=== PATIENT | male | born 1985 | race Caucasian/White ===

== ENCOUNTER 2022-08-02 08:05 | Emergency (ER) | payer MEDICARE, MEDICAID ==
[~2022-08-02] VITALS: Ht 190.5 cm; Wt 145.4 kg
[2022-08-02 08:45] LABS: BASOPHILS % (AUTO) 0.2 % (0-1); EOSINOPHILS # (AUTO) 0.1 X10'3 (0-0.9); EOSINOPHILS % (AUTO) 1.1 % (0-6); HEMATOCRIT 39.6 % (42.0-52.0); HEMOGLOBIN 12.8 g/dl (14.0-17.9); LYMPHOCYTES # (AUTO) 1.7 X10'3 (1.1-4.8); LYMPHOCYTES % (AUTO) 17.6 % (21-51); MEAN CORPUSCULAR HEMOGLOBIN 26.4 PG (27.0-31.0); MEAN CORPUSCULAR HGB CONC 32.3 g/dL (33.0-36.5); MEAN CORPUSCULAR VOLUME 81.8 FL (78-98); MEAN PLATELET VOLUME 8.6 FL (7.4-10.4); MONOCYTES # (AUTO) 0.6 X10'3 (0-0.9); MONOCYTES % (AUTO) 6.9 % (2-12); NEUTROPHILS % (AUTO) 74.2 % (42-75); PLATELET COUNT 256 X10'3 (140-440); RED BLOOD COUNT 4.84 X10'6 (4.70-6.10); RED CELL DISTRIBUTION WIDTH 13.8 % (11.5-14.5); WHITE BLOOD COUNT 9.4 X10'3 (4.5-11.0)
[2022-08-02 09:14] LABS: ALANINE AMINOTRANSFERASE 46 U/L (12-78); ALBUMIN/GLOBULIN RATIO 1.1 (1.1-1.5); ALKALINE PHOSPHATASE 134 IU/L (46-116); ANION GAP 10 (8-16); ASPARTATE AMINO TRANSFERASE 28 U/L (10-37); BILIRUBIN,TOTAL 0.5 MG/DL (0.1-1.0); BLOOD UREA NITROGEN 17 MG/DL (7-18); BUN/CREATININE RATIO 18.9 (5.4-32.0); CALCIUM 9.4 MG/DL (8.5-10.1); CHLORIDE 98 MMOL/L (99-107); ETHANOL < 0.010 GM/DL (0.0-0.010); GLUCOSE 372 MG/DL (70-104); POTASSIUM 3.6 MMOL/L (3.5-5.1); SODIUM 135 MMOL/L (135-145); TOTAL PROTEIN 7.8 G/DL (6.4-8.2); eGFR > 90 ML/MIN
--- NOTE | 2022-08-02 09:23 | NUR ---
PATIENT ATTEMPTED TO LEAVE ER. STARTED YELLING AT STAFF. "I WANT A CLIN ASST AND MY BILL OF RIGHTS." SECURITY CALLED, PATIENT DE-ESCALATED WITH VERBAL COACHING. AMBULATED BACK TO ROOM. QUESTIONS ANSWERED.
[2022-08-02] MEDS ORDERED: LORazepam 2 mg/ml vial IM ONE (09:50)
[2022-08-02] MEDS ORDERED: diphenhydrAMINE 50 mg/ml inj IM ONE (09:50)
[2022-08-02] MEDS ORDERED: haloperidol lactate 5mg/ml inj IM ONE (09:50)
--- NOTE | 2022-08-02 10:30 | NUR ---
PT CONTINUES TO TRY TO LEAVE THE ER. PT WAS MEDICATATED AND MOVED FROM ER9 TO ER14 WHERE HE CAN BE WATCHED MORE CLOSELY.
--- NOTE | 2022-08-02 13:40 | NUR ---
Family (sister from [place]) updated on pt's status.
[2022-08-02] MEDS ORDERED: olanzapine 10mg tablet PO ONE (16:50)
--- NOTE | 2022-08-02 20:29 | NUR ---
1930 pt sleeping this time, pt noted to talk in sleep, sister called and updated on pt status. 2030 pt sleeping, continues to talk in sleep, no distress noted, talked with sister on phone, advised that she can talk with social working in the am, advised that pt is on 5150 hold and will not be able to leave hospital tell cleared by Mental Health.
--- NOTE | 2022-08-03 01:23 | NUR ---
pt agitated, pacing around the unit, demanding lawer, refusing to go back to bed, cursing staff, security notified
--- NOTE | 2022-08-03 01:24 | NUR ---
pt walked up to another pt's bedside would not return to bed
[2022-08-03] MEDS ORDERED: LORazepam 2 mg/ml vial IM ONE ×2 (01:30→23:00)
[2022-08-03] MEDS ORDERED: haloperidol decanoate***LONG-ACTING*** 100mg/ml **IM only** inj. IM ONE (01:30)
[2022-08-03] MEDS ORDERED: haloperidol lactate 5mg/ml inj ONE (01:32)
[2022-08-03] MEDS ORDERED: LORazepam 2 mg/ml vial ONE (01:36)
--- NOTE | 2022-08-03 01:48 | NUR ---
pt continues to pace and refuse to stay in bed, not listen to security request to stay in bed.
--- NOTE | 2022-08-03 02:01 | NUR ---
pt continues to pace,verbal abuse of staff and security, not following comands from security to not approch them, pt placed in 4 point restraints at this time
--- NOTE | 2022-08-03 02:42 | NUR ---
[facility] mental health packet faxed at [phone]
[2022-08-03] MEDS: OLANZapine 5mg rapidly disint. tablet PO ONE ×2 (04:10→04:34)
--- NOTE | 2022-08-03 04:11 | NUR ---
0400 Dr Cruz notified that pt is still agitated, yelling and unredirectable, unable to remove restraints due to agitation and safty, verbal order for zyprex 10mg po x 1 given
--- NOTE | 2022-08-03 04:26 | NUR ---
0400 unable to de-esculate pt, pt continues to be agitated when and aggresive with staff when approched to check restraints and obtain vitals, Discussed with Dr López about continued agaitation and pt is still in 4 point leather restraints, order recived for zyprex 10mg.
--- NOTE | 2022-08-03 04:41 | NUR ---
pt refused medication, Dr López notified and changed to IM
[2022-08-03] MEDS ORDERED: OLANZapine **IM** 10 mg inj. IM ONE (04:45)
--- NOTE | 2022-08-03 05:19 | NUR ---
pt continues to be agitated and yelling, breathing even and unlabored, no signs of injury noted at this time
--- NOTE | 2022-08-03 05:44 | NUR ---
pt yelling " I will break your face", continues to be agitated
--- NOTE | 2022-08-03 06:30 | NUR ---
RN received pt. in 4 point restraints. RN introduced himself to pt. and asked pt. if he needed to urinate and pt. immediately began yelling and struggling in the bed. Pt. yelling psychotic delusions, such as, "we need to go to [facility]!.. Allah told me so... I need to get up!" Pt. unable to contract for safety. VSS. Respirations 18.
--- NOTE | 2022-08-03 07:00 | NUR ---
Pt. requesting to urinate. RN offered pt. help with urinal, pt. initially accepted, but then refused, responding to voices, pt. states, "No, she said don't do it". Pt. yelling, "I'm in [employer], I need to leave!".
--- NOTE | 2022-08-03 07:12 | NUR ---
Pt. asked for urinal, RN assisted pt. and pt. urinated 250 CC of cachorro colored urine. RN collected specimen of UA and UDS.
--- NOTE | 2022-08-03 07:21 | NUR ---
Pt. struggling in bed, stating, "Osama, you're not gonna get me, you guys... Watch out for the trip wire".
[2022-08-03 08:08] LABS: CLARITY,URINE CLOUDY (Clear); COLOR,URINE YELLOW (Yellow); GLUCOSE, URINE 500 mg/dl (Neg); KETONES,URINE 15 mg/dl (Neg); LEUKOCYTE ESTERASE ,URINE MODERATE (Neg); NITRITES, URINE NEGATIVE (Neg); OCCULT BLOOD,URINE SMALL (Neg); PROTEIN,URINE NEGATIVE (Neg); UROBILINOGEN,URINE 0.2 E.U/dL (0.2-1.0)
[2022-08-03 08:12] LABS: UA COLLECTION TYPE NON-SPECIFIED
[2022-08-03 08:15] LABS: SQUAMOUS EPITHELIAL CELL,UR MANY /LPF (FEW)
[2022-08-03 08:16] LABS: BACTERIA,URINE 3+ /HPF (Neg); MUCUS STRANDS FEW /LPF (Neg); WBC,URINE TNTC /HPF (0-4)
[2022-08-03 08:17] LABS: RBC,URINE 0-2 /HPF (0-2)
[2022-08-03 08:50] LABS: URINE AMPHETAMINE SCREEN NEGATIVE (Neg); URINE BARBITUATE SCREEN NEGATIVE (Neg); URINE BENZODIAZEPINES SCREEN NEGATIVE (Neg); URINE CANNABINOID SCREEN POSITIVE (Neg); URINE COCAINE SCREEN NEGATIVE (Neg); URINE METHADONE SCREEN NEGATIVE (Neg); URINE OPIATE SCREEN NEGATIVE (Neg); URINE PHENCYCLIDINE SCREEN NEGATIVE (Neg)
--- NOTE | 2022-08-03 08:50 | NUR ---
RN attempted to contract for safety with pt. allowing his left arm and right foot free from the restraints, however, pt. attempted to loosen his other restraints, stating, "you can't keep me here, I'm leaving". Security was called and pt. was placed back into restraints.
--- NOTE | 2022-08-03 08:55 | NUR ---
PT PACKET SENT TO [facility] BY TECH
--- NOTE | 2022-08-03 09:00 | NUR ---
Pt. positive for UTI. Provider ordered IV Rocephin 2g given over 5 minutes. and Bolus of NS. IV placed in right FA and NS started at 999ml/hr. Awaiting Rocephin from pharmacy.
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
[2022-08-03] MEDS ORDERED: CefTRIAXone 2gm/D5W 50ml BAG 50 ML IV STA (09:03)
[2022-08-03] MEDS ORDERED: normal saline 1000ml 1,000 ML IV ONE (09:05)
--- NOTE | 2022-08-03 09:09 | NUR ---
Pt. requested urinal. RN was assisting pt., then pt. states, no, no, nevermind, "I don't want you touching me"
[2022-08-03] MEDS ORDERED: diphenhydrAMINE 50 mg/ml inj IM STA (09:50)
[2022-08-03] MEDS ORDERED: LORazepam 2 mg/ml vial IM STA (09:50)
[2022-08-03] MEDS ORDERED: OLANZapine **IM** 10 mg inj. IM STA (09:50)
--- NOTE | 2022-08-03 10:16 | NUR ---
PT'S SISTER WAS HERE ASKING FOR PT'S WALLET TO PAY HIS RENT FOR THE MONTH. SISTER WAS INFORMED THAT PT HAD BEEN MEDICATED AND SLEEPING AND THE WALLET COULD NOT BE RELINQUISHED TO HER WITHOUT THE PT'S PERMISSION; WHEN PT WAKES UP HE WILL BE ASK IF SHE CAN TAKE HIS WALLET TO PAY HIS RENT. SISTER PROVIDED HER PHONE# TO CALL HER FOR WHEN SHE CAN CAREER DEVELOPMENT COORDINATOR/TEACHER THE PT'S WALLET. SISTER; MORRIS: PT'S SISTERS IS ALSO REQUESTING A MEETING WITH [facility] TO SPEAK WITH THEM REGARDING THE PT KAMERON. WAS INFORMED THAT [facility] WILL BE TOLD OF THEIR REQUEST.
--- NOTE | 2022-08-03 10:17 | NUR ---
pt sister came in and spoke to registration in regards of getting pt's wallet from us, wallet was not marked in the belongings log for pt, wallet was found by and given to registration, wallet was placed into the safe.
--- NOTE | 2022-08-03 11:00 | NUR ---
Pt.'s sister visiting and pt. became more calm, RN released pt. from left hand and right foot restraint.
--- NOTE | 2022-08-03 11:11 | NUR ---
Pt.'s sister, Nannette phone number [phone]
--- NOTE | 2022-08-03 11:30 | NUR ---
RN informed by pt.'s sister that pt. had an empty bottle of Modafinil near his bed and that pt. previously OD on this medication.
[2022-08-03] MEDS ORDERED: PROP40TA72 PO (11:37)
[2022-08-03] MEDS ORDERED: GABA-530 PO (11:37)
[2022-08-03] MEDS ORDERED: TOPI25TA49 PO (11:37)
[2022-08-03] MEDS ORDERED: ROSU20TA2 PO (11:37)
[2022-08-03] MEDS ORDERED: MELO-102 PO (11:37)
[2022-08-03] MEDS ORDERED: TEST60GE2 (11:37)
[2022-08-03] MEDS ORDERED: CYCL5TAB PO (11:37)
[2022-08-03] MEDS ORDERED: EMPA10TA PO (11:37)
[2022-08-03] MEDS ORDERED: BUPR100T13 PO (11:37)
[2022-08-03] MEDS ORDERED: propranolol 10mg tablet PO SCH (11:57)
[2022-08-03] MEDS ORDERED: buPROPion 100mg tablet PO ONE (11:58)
[2022-08-03] MEDS ORDERED: cyclobenzaprine 10mg tablet PO PRN (12:00)
--- NOTE | 2022-08-03 12:15 | NUR ---
Pt. became agitated and attempting to pull of his right wrist restraint, stating, "you cannot keep me here". Pt. was put back in left wrist and left foot restraints.
[2022-08-03] MEDS ORDERED: propranolol 40mg tablet PO ONE (13:10)
[2022-08-03] MEDS: topiramate 25mg tablet PO SCH (13:15)
[2022-08-03] MEDS: EMPAGLIFLOZIN 10 MG TABLET PO SCH (13:15)
--- NOTE | 2022-08-03 14:00 | NUR ---
Pt. requested his tray. RN fed pt. while he was in 4 point restraints. Pt. ate 75 of carbs and 100% of protein
--- NOTE | 2022-08-03 15:30 | NUR ---
pt sister took one bag of belongings home to wash and clean up for pt. one bag is left with his shows and hat in the corresponding locker to room number.
[2022-08-03] MEDS ORDERED: gabapentin 100mg capsule PO SCH (16:00)
--- NOTE | 2022-08-03 16:00 | NUR ---
Pt.'s sisters spoke with RN stating they are going to pursue LPS conservatorship.
--- NOTE | 2022-08-03 16:30 | NUR ---
Pt. had 700cc light-cachorro colored urine out in urinal with assistance from RN.
[2022-08-03] MEDS: gabapentin 100mg capsule PO SCH (16:40)
--- NOTE | 2022-08-03 16:52 | NUR ---
Pt. observed talking to someone on his right who wasn't there. When asked who he's talking to, pt. states, "I'm talking to my sister through telepathy, I've been doing it for quit some time." Pt. 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 blue... no [employer]?"
--- NOTE | 2022-08-03 17:33 | NUR ---
Pt. requested to have is right wrist restraint loosened, RN loosened pt.'s right wrist restraint and pt. proceeded to force his hand out of the restraint.
--- NOTE | 2022-08-03 17:34 | NUR ---
Pt. pulled his IV out. Pt. cleaned up. IV not reinserted as IV meds were one time orders.
--- NOTE | 2022-08-03 18:30 | NUR ---
Patient is yelling, delusional, responding to internal stimuli. Speech is tangential, thought disorganized at times. Patient is in behavioral restraints.
--- NOTE | 2022-08-03 19:40 | NUR ---
Patient remains in behavioral restraints. This ticket writer will speak with ER MD about changing status to non behavioral restraints which would be more appropiate.
[2022-08-03] MEDS: buPROPion 100mg tablet PO SCH (20:00)
--- NOTE | 2022-08-03 21:32 | NUR ---
Patient is awake, in non behavioral restraints. yelling out about "killing somebody with a shotgun." Patient remains quite delusional, he is responding to internal stimuli.
[2022-08-03] MEDS ORDERED: haloperidol lactate 5mg/ml inj IM ONE (23:00)
[2022-08-03] MEDS ORDERED: diphenhydrAMINE 50 mg/ml inj IM ONE (23:00)
--- NOTE | 2022-08-03 23:00 | NUR ---
Patient has been responding to internal stimuli, he audible hallucinations, he fights against restraints. Patient violent early today. Hx: Schizoeffective disorder. ER MD consulted. B-52 will be given. The patient is non compliant with PO medications at this time.
--- NOTE | 2022-08-04 01:56 | NUR ---
Ativan 2 mg IM and Benadryl IM were given. Plan: to reduce patients
[2022-08-04] MEDS ORDERED: haloperidol lactate 5mg/ml inj IM ONE (02:45)
--- NOTE | 2022-08-04 03:01 | NUR ---
Patient given Haldol 5 mg IM as he awoke, fought against restraints, he remaind delusional and responding to internal stimuli.
[2022-08-04] MEDS ORDERED: traZODone 50mg tablet PO ONE (03:10)
--- NOTE | 2022-08-04 03:43 | NUR ---
Patient is sleeping quietly now. No distress.
--- NOTE | 2022-08-04 04:35 | NUR ---
Patient awoke, began yelling, patient defecated in bed. Patient remains psychotic, tangential speech, disorganized thought, delusional.
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
[2022-08-04] MEDS ORDERED: diphenhydrAMINE 50 mg/ml inj IM ONE ×2 (04:55→22:50)
[2022-08-04] MEDS ORDERED: LORazepam 2 mg/ml vial IM ONE ×2 (04:55→22:50)
--- NOTE | 2022-08-04 06:26 | NUR ---
Patient is sleeping quietly. No distress.
--- NOTE | 2022-08-04 06:50 | NUR ---
Patient sleeping with equal and nonlabored respirations. No distress observed. Continue to monitor.
[2022-08-04] MEDS ORDERED: non-formulary drug (Meloxicam 1 TAB) PO SCH (08:00)
--- NOTE | 2022-08-04 08:25 | NUR ---
Patient sleeping. No distress observed. Continue to monitor.
[2022-08-04] MEDS: gabapentin 100mg capsule PO SCH ×3 (08:52→16:30)
[2022-08-04] MEDS: EMPAGLIFLOZIN 10 MG TABLET PO SCH (08:52)
[2022-08-04] MEDS: topiramate 25mg tablet PO SCH (08:53)
[2022-08-04] MEDS: propranolol 40mg tablet PO SCH (08:53)
[2022-08-04] MEDS: buPROPion 100mg tablet PO SCH ×2 (08:53→20:00)
--- NOTE | 2022-08-04 09:10 | NUR ---
Patient eating breakfast. No distress observed. Continue to monitor.
--- NOTE | 2022-08-04 09:55 | NUR ---
Patient ambulatory to BR, steady gait. No distress observed. Continue to monitor.
--- NOTE | 2022-08-04 11:50 | NUR ---
Patient watching T.V. No distress observed. Continue to monitor.
--- NOTE | 2022-08-04 12:32 | NUR ---
Patient eating lunch and speaking on the phone. No distress observed. Continue to monitor.
--- NOTE | 2022-08-04 14:11 | NUR ---
Patient sleeping supine. No distress observed. Patient has been calm and cooperative. Continue to monitor.
--- NOTE | 2022-08-04 20:59 | NUR ---
Received pt pacing and walking up to the nurses station requesting random items. Pt delusional
--- NOTE | 2022-08-04 21:00 | NUR ---
Pt makes delusional statements, pt became somewhat irritable asking about his personal items but was re-directable. Pt is currently laying in bed asleep, TV is on.
--- NOTE | 2022-08-04 21:30 | NUR ---
Pt responding to IS, gets up from his bed and paces. PRovider notified to get a PRN and provider told this RN "I will assess the patient."
--- NOTE | 2022-08-04 22:07 | NUR ---
Provider has not assessed pt, pt continues to pace the unit.
[2022-08-04] MEDS ORDERED: olanzapine 10mg tablet PO SCH (22:20)
--- NOTE | 2022-08-04 22:31 | NUR ---
New provider on site, 10MG zyprexa odered and given.
--- NOTE | 2022-08-04 23:03 | NUR ---
Pt became increasingly agitated, would not listen to this RN or be re-directed. Security and provider notified, 50MG benadryl, 2MG ativan given IM. Pt cooperative with injections.
--- NOTE | 2022-08-05 00:15 | NUR ---
Pt appears to be sleeping.
--- NOTE | 2022-08-05 02:46 | NUR ---
Pt appears to be sleeping.
[2022-08-05] MEDS ORDERED: LORazepam 2 mg/ml vial IM ONE (04:40)
[2022-08-05] MEDS ORDERED: haloperidol lactate 5mg/ml inj IM ONE ×2 (04:40→08:30)
[2022-08-05] MEDS ORDERED: diphenhydrAMINE 50 mg/ml inj IM ONE ×3 (04:40→20:55)
[2022-08-05] MEDS ORDERED: LORazepam 2 mg/ml vial ONE (04:41)
[2022-08-05] MEDS ORDERED: diphenhydrAMINE 50 mg/ml inj ONE (04:42)
[2022-08-05] MEDS ORDERED: haloperidol lactate 5mg/ml inj ONE (04:42)
--- NOTE | 2022-08-05 04:57 | NUR ---
Pt awake and getting increasingly agitated, up to the nurses station making demands to the staff. Pt pacing back and forth using hand gestures, provider notified, security at bedside. 50MG benadryl, 2MG ativan, 10MG haldol given IM with little resistance.
--- NOTE | 2022-08-05 06:52 | NUR ---
Patient received I.M. antipsychotic meds at 0545. Patient is being defiant and testing his boundries. Patient is calm and rude at this time. Continue to monitor.
[2022-08-05] MEDS: topiramate 25mg tablet PO SCH (08:00)
[2022-08-05] MEDS: gabapentin 100mg capsule PO SCH ×3 (08:00→15:49)
[2022-08-05] MEDS: EMPAGLIFLOZIN 10 MG TABLET PO SCH (08:00)
--- NOTE | 2022-08-05 08:11 | NUR ---
Patient eating breakfast. No distress observed. Continue to monitor.
[2022-08-05] MEDS ORDERED: MIDAZolam 5mg/ml 2ml vial IM ONE (08:30)
--- NOTE | 2022-08-05 09:22 | NUR ---
Patient was intrusive and attempted to walk out. Patient does not follow commands. Security called to walk patient back to his room from in front of [facility]. Continue to monitor.
--- NOTE | 2022-08-05 11:09 | NUR ---
Patient awake but laying in bed. No distress observed. Continue to monitor.
[2022-08-05] MEDS: buPROPion 100mg tablet PO SCH (11:35)
--- NOTE | 2022-08-05 12:17 | NUR ---
Patient eating lunch. No distress observed. Continue to monitor.
[2022-08-05] MEDS: propranolol 40mg tablet PO SCH (13:47)
--- NOTE | 2022-08-05 13:49 | NUR ---
Patient appears to be sleeping with T.V. on. No distress observed. Continue to monitor.
--- NOTE | 2022-08-05 14:50 | NUR ---
Miguel A Mendoza, psych PA evaluating patient.
--- NOTE | 2022-08-05 19:43 | NUR ---
One to one with the patient and discussed plan of care. Discussed UA results and that he would be started on antibiotics. When asked about UA symptoms he gave a rambling explaination about having a urinary tract infection for two years and something about covid. His speech is rapid and pressured. He has been observed talking to someone who is not there but denies voices. When asked why he was here he gave a rambling explaination blaming his sister, "my sister got paranoid" and gave loosely associated details that were hard to follow. He is intrusive at times. He currently is following directions. He then stated he was here on a hold 2nd to [employer].
--- NOTE | 2022-08-05 19:52 | NUR ---
Dr. Castillo asked to review UA results and orders received.
[2022-08-05] MEDS ORDERED: OLANZapine 2.5MG tablet PO SCH (20:00)
[2022-08-05] MEDS: cephalexin 250mg capsule PO SCH (20:12)
[2022-08-05] MEDS: gabapentin 300mg capsule PO SCH (20:12)
[2022-08-05] MEDS: OLANZapine 5mg rapidly disint. tablet PO SCH (20:12)
--- NOTE | 2022-08-05 20:45 | NUR ---
Patient eloped from the ER and was found by security out in front of the hospital stating he was trying to contact his sister and get his phone. He did walk back into the ER but once in the main ER he became combative with security staff and was retrained on the floor then moved to bed 26 in the ER overflow and was placed in restraints. Dr. Castillo was made aware and medication orders were given. Discussed with the patient that he needed to stay in the ER. He was accepting of medications and was cooperative with getting IM medications. He has been taken out of restraints.
[2022-08-05] MEDS ORDERED: LORazepam 2 mg/ml vial IM STA (20:53)
[2022-08-05] MEDS ORDERED: haloperidol lactate 5mg/ml inj IM STA (20:53)
--- NOTE | 2022-08-05 21:53 | NUR ---
The patient appears to be sleeping
--- NOTE | 2022-08-05 23:22 | NUR ---
The patient appears to be sleeping
--- NOTE | 2022-08-06 01:15 | NUR ---
The patient appears to be sleeping
--- NOTE | 2022-08-06 03:04 | NUR ---
The patient appears to be sleeping
--- NOTE | 2022-08-06 05:06 | NUR ---
The patient was up out of bed briefly but is now back in bed.
[2022-08-06 05:36] VITALS: BP 114/75
--- NOTE | 2022-08-06 06:53 | NUR ---
Patient is sleeping supine. No distress observed. Continue to monitor.
--- NOTE | 2022-08-06 08:17 | NUR ---
Patient awake and eating breakfast. No distress observed. Continue to monitor.
[2022-08-06] MEDS: topiramate 25mg tablet PO SCH (08:42)
[2022-08-06] MEDS: propranolol 40mg tablet PO SCH (08:42)
[2022-08-06] MEDS: gabapentin 300mg capsule PO SCH ×2 (08:42→15:08)
[2022-08-06] MEDS: cephalexin 250mg capsule PO SCH ×2 (08:43→15:07)
[2022-08-06] MEDS: OLANZapine 5mg rapidly disint. tablet PO SCH (08:43)
--- NOTE | 2022-08-06 09:40 | NUR ---
[facility] Continue to monitor.
--- NOTE | 2022-08-06 11:22 | NUR ---
Patient sitting on his bed watching T. V. Patient is up and down a lot. Patient comes to nurses station and chats and will chat. Patient also chats with patient (62 yo female). No distress observed. Patient has had much better behavior today. Continue to monitor.
--- NOTE | 2022-08-06 12:44 | NUR ---
Patient ate lunch. Patient was placed on another 5150 by [facility]. Continue to monitor.
[2022-08-06] MEDS: EMPAGLIFLOZIN 10 MG TABLET PO SCH (13:50)
--- NOTE | 2022-08-06 14:04 | NUR ---
Patient's sister and [id number] visiting patient. No distress observed. Patient chatting with family. Continue to monitor.
--- NOTE | 2022-08-06 15:50 | NUR ---
Patient's family came back with suitcase full of clothes. Patient calm and visiting with family. Continue to monitor.
== END 2022-08-06 16:40 ==
LOC: ER 08:07
DX: F25.9 Schizoaffective disorder, unspecified (principal); Z20.822 Contact with and (suspected) exposure to COVID-19; Z79.899 Other long term (current) drug therapy
CPT/HCPCS: 36415; 80053; 80305; 80320; 81001; 82948; 84443; 85025; 87811; 93005; 96365; 96372; 99285; J0696; J1200; J1630; J2060; J3490; J7030

== ENCOUNTER 2022-10-09 06:34 | Emergency (ER) | payer MEDICARE, MEDICAID ==
[~2022-10-09] VITALS: Ht 193 cm; Wt 145.0 kg
[~2022-10-09 06:34] MED LIST: BUPR100T13 PO; CYCL5TAB PO; EMPA10TA PO; GABA-530 PO; MELO-102 PO; PROP40TA72 PO; ROSU20TA2 PO; TEST60GE2; TOPI25TA49 PO
[2022-10-09] MEDS ORDERED: haloperidol lactate 5mg/ml inj IM ONE (06:50)
[2022-10-09] MEDS ORDERED: LORazepam 2 mg/ml vial IM ONE (06:50)
[2022-10-09] MEDS ORDERED: diphenhydrAMINE 50 mg/ml inj IM ONE (06:50)
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
--- NOTE | 2022-10-09 07:13 | NUR ---
PT WAS MEDICATED FOR STAFF AND PATIENT SAFETY. SECURITY AND [employer] WERE AT BEDSIDE. PT WAS ALSO CHANGED INTO GREEN SCRUB BOTTOMS. HE REFUSED TO PUT THE TOP ON STATING IT WAS TOO SMALL WHICH IS PARTIALLY A TRUE STATEMENT. PT IS ON MONITORING EQUIPMENT.
--- NOTE | 2022-10-09 08:00 | NUR ---
PT HAS DISPLAYED CALM BEHAVIOR SINCE BEING MEDICATED. HE WAS COOPERATIVE LAB DRAW. WILL ATTEMPT TO COLLECT URINE WHEN PT NEEDS TO VOID. HE IS GIVEN WARM BLANKETS AND OFFERED BREAKFAST BUT DECLINES FOOD AT THIS TIME.
--- NOTE | 2022-10-09 08:08 | NUR ---
PT NOT COOPERATIVE WITH COLUMBIA ASSESSMENT AND OTHER REQUIRED CHARTING. WILL ATTEMPT AGAIN LATER IF/WHEN PT IS MORE COOPERATIVE
[2022-10-09 08:13] LABS: BASOPHILS % (AUTO) 0.3 % (0-1); EOSINOPHILS # (AUTO) 0.2 X10'3 (0-0.9); EOSINOPHILS % (AUTO) 2.3 % (0-6); HEMATOCRIT 39.3 % (42.0-52.0); HEMOGLOBIN 12.9 g/dl (14.0-17.9); LYMPHOCYTES # (AUTO) 1.4 X10'3 (1.1-4.8); MEAN CORPUSCULAR HEMOGLOBIN 26.6 PG (27.0-31.0); MEAN CORPUSCULAR HGB CONC 32.7 g/dL (33.0-36.5); MEAN CORPUSCULAR VOLUME 81.4 FL (78-98); MEAN PLATELET VOLUME 7.7 FL (7.4-10.4); MONOCYTES # (AUTO) 0.5 X10'3 (0-0.9); MONOCYTES % (AUTO) 6.4 % (2-12); NEUTROPHILS # (AUTO) 5.7 X10'3 (1.8-7.7); PLATELET COUNT 253 X10'3 (140-440); RED BLOOD COUNT 4.83 X10'6 (4.70-6.10); RED CELL DISTRIBUTION WIDTH 15.6 % (11.5-14.5); WHITE BLOOD COUNT 7.8 X10'3 (4.5-11.0)
[2022-10-09 08:20] LABS: ALANINE AMINOTRANSFERASE 29 U/L (12-78); ALBUMIN 3.8 G/DL (3.4-5.0); ALKALINE PHOSPHATASE 121 IU/L (46-116); ANION GAP 8 (8-16); ASPARTATE AMINO TRANSFERASE 14 U/L (10-37); BILIRUBIN,TOTAL 0.6 MG/DL (0.1-1.0); BLOOD UREA NITROGEN 14 MG/DL (7-18); BUN/CREATININE RATIO 17.3 (5.4-32.0); CHLORIDE 99 MMOL/L (99-107); CREATININE 0.81 MG/DL (0.60-1.10); GLUCOSE 374 MG/DL (70-104); POTASSIUM 4.1 MMOL/L (3.5-5.1); SODIUM 133 MMOL/L (135-145); TOTAL CARBON DIOXIDE 25.6 MMOL/L (24-32); TOTAL PROTEIN 7.7 G/DL (6.4-8.2); eGFR > 90 ML/MIN
[2022-10-09 08:34] LABS: ETHANOL < 0.010 GM/DL (0.0-0.010)
[2022-10-09] MEDS ORDERED: TEST100V11 IM (09:04)
[2022-10-09] MEDS ORDERED: OLAN20TA34 PO (09:04)
[2022-10-09] MEDS ORDERED: GABA-534 PO (09:04)
[2022-10-09] MEDS ORDERED: GLIP10TA11 PO (09:04)
[2022-10-09] MEDS ORDERED: LIDO700A47 TOP (09:04)
[2022-10-09] MEDS ORDERED: SEMA0.25 SUBCUT (09:04)
--- NOTE | 2022-10-09 09:06 | NUR ---
ATTEMPTED MED REC - ENTERED ANY MEDS THAT PT HAS CURRENT RX FOR. UNSURE ABOUT GUANFACINE, SEROQUEL AND DEPAKOTE. THE DATE FOR THOSE MEDS IS CURRENT BUT THERE IS NOT A LENGTH OF TIME SPECIFIED FOR THE RX. WILL CONSULT WITH PHARMACY.
--- NOTE | 2022-10-09 09:54 | NUR ---
PT SLEEPING, ON MONITOR. NO DISTRESS NOTED. WILL CONTINUE TO MONITOR
--- NOTE | 2022-10-09 11:06 | NUR ---
PT CONTINUES TO REST
--- NOTE | 2022-10-09 11:22 | NUR ---
SISTER CALLED, STATES HE WAS RELEASED FROM [facility] AROUND THE September. FAMILY HAS BEEN WORKING WITH DR. BAZAN AND [employer]IS [employer] TO GET HIM CONSERVED SISTER STATES PATIENT TOLD HER THAT HE QUIT TAKING HIS ANTIPSYCHOTICS BECAUSE THEY MAKE HIM "DULL" - PT DOESN'T HAVE A HOME TO GO PER SISTER. PT WAS ON A MONTH TO MONTH RENTAL AND HIS LEASE HASN'T BEEN RENEWED BECAUSE OF HIS BEHAVIOR. ON December HE WILL HAVE PERMANENT HOUSING (WITH SISTER) BUT UNTIL THEN HE IS HOMELESS. SISTER STATES HE HAS BEEN IN AND OUT OF HOSPITALS (IN [place]) FOR PAST DECADE. 20 YEAR HISTORY OF MENTAL ILLNESS. SISTER STATES HE HAS BEEN "POPPING XANAX" LIKE LANA (IT'S NOT RX'D TO HIM) HE IS NON-COMPLIANT WITH HIS MEDS. [phone] SARA NOVOA (SISTER) SHE WOULD LIKE [facility] TO CALL HER BEFORE OR AFTER THEY INTERVIEW PATIENT.
--- NOTE | 2022-10-09 12:19 | NUR ---
PT SLEEPING INTERMITTENTLY. ENTERED ROOM TO REMOVE MONITORING EQUIPMENT. PT BRIEFLY WOKE. HE IS OFFERED LUNCH BUT FALLS BACK TO SLEEP IN THE TIME OF OBTAINING MEAL TRAY. WILL OFFER FOOD AGAIN WHEN HE IS MORE AWAKE. PT CONTINUES TO BE COOPERATIVE ALTHOUGH DIFFICULT TO UNDERSTAND HIS RAMBLING.
[2022-10-09 14:13] LABS: URINE AMPHETAMINE SCREEN NEGATIVE (Neg); URINE BARBITUATE SCREEN NEGATIVE (Neg); URINE BENZODIAZEPINES SCREEN POSITIVE (Neg); URINE CANNABINOID SCREEN NEGATIVE (Neg); URINE COCAINE SCREEN NEGATIVE (Neg); URINE METHADONE SCREEN NEGATIVE (Neg); URINE OPIATE SCREEN NEGATIVE (Neg); URINE PHENCYCLIDINE SCREEN NEGATIVE (Neg)
--- NOTE | 2022-10-09 14:15 | NUR ---
Patient ambulatory to ED OF Bed 25 from Main ED. Patient was a little intrusive with other patients but was redirectable. Patient talking about calling his famous from [place] and wanted to use the phone. Patient was distracted and stopped asking about calling his . And he is Shana Contreras's brother. Patient went to lay in his bed. Continue to monitor.
[2022-10-09] MEDS ORDERED: cyclobenzaprine 10mg tablet PO PRN (15:15)
[2022-10-09] MEDS ORDERED: TESTOSTERONE CYPIONATE 200 MG/ML VIAL IM SCH (15:15)
[2022-10-09] MEDS ORDERED: SEMAGLUTIDE 0.25 MG/0.2 ML SQ SCH (15:15)
[2022-10-09 15:22] LABS: CLARITY,URINE CLOUDY (Clear); COLOR,URINE YELLOW (Yellow); GLUCOSE, URINE 500 mg/dl (Neg); KETONES,URINE >=80 mg/dl (Neg); LEUKOCYTE ESTERASE ,URINE SMALL (Neg); NITRITES, URINE NEGATIVE (Neg); OCCULT BLOOD,URINE TRACE-INTACT (Neg); PROTEIN,URINE NEGATIVE (Neg); UROBILINOGEN,URINE 0.2 E.U/dL (0.2-1.0)
[2022-10-09 15:53] LABS: UA COLLECTION TYPE VOIDED
[2022-10-09 15:55] LABS: WBC,URINE 30-50 /HPF (0-4)
[2022-10-09 15:56] LABS: BACTERIA,URINE 2+ /HPF (Neg); SQUAMOUS EPITHELIAL CELL,UR FEW /LPF (FEW)
--- NOTE | 2022-10-09 16:59 | NUR ---
Patient sleeping supine. No distress observed. Continue to monitor.
--- NOTE | 2022-10-09 17:10 | NUR ---
Patient awoke and demanded his phone. RN advised patient that he cannot use his cell phone but is able to use our phones. Patient got up and asked "Why am I here?" RN was going to pull out his 5150 but patient got verbally abusive and demanding to be "mirandized". Called RN some choice words and threatening to mihai this place with RN's name on the suit and "I am going to throw some names around." Patient getting more agitated and RN called Security for backup. Patient did calm down and they told patient to go to his room. Patient complied. Patient is psychotic and talking about his famous from [place]. Patient has no insight. Continue to monitor.
--- NOTE | 2022-10-09 17:52 | NUR ---
packet faxed to [facility]
--- NOTE | 2022-10-09 19:28 | NUR ---
The patient has been resting on his bed. Her periodically has been yelling out to call [employer]. He is easily agitated by female peer. When attempted one to one his speech was pressured and rapid. He is making bizarre delusional statements that contain of flight of ideas.
[2022-10-09] MEDS: gabapentin 400mg capsule PO SCH (20:15)
--- NOTE | 2022-10-09 20:33 | NUR ---
The patient appears to be sleeping
[2022-10-09] MEDS ORDERED: olanzapine 10mg tablet PO SCH (21:00)
--- NOTE | 2022-10-09 21:08 | NUR ---
Nurse to nurse with Dorothea Astorga
--- NOTE | 2022-10-09 22:09 | NUR ---
The patient has been accepted at [facility] as long as blood glucose lower in the am. He was accepted at [address] Cortez. Nurse to nurse in am [phone]
--- NOTE | 2022-10-09 23:26 | NUR ---
The patient appears to be sleeping
--- NOTE | 2022-10-10 01:02 | NUR ---
The patient appears to be sleeping
[2022-10-10] MEDS ORDERED: diphenhydrAMINE 50 mg/ml inj ONE (01:14)
[2022-10-10] MEDS ORDERED: haloperidol lactate 5mg/ml inj ONE (01:14)
[2022-10-10] MEDS ORDERED: diphenhydrAMINE 50 mg/ml inj IM ONE (01:15)
[2022-10-10] MEDS ORDERED: haloperidol lactate 5mg/ml inj IM ONE (01:15)
[2022-10-10] MEDS ORDERED: LORazepam 2 mg/ml vial ONE (01:15)
[2022-10-10] MEDS ORDERED: LORazepam 2 mg/ml vial IM ONE (01:15)
--- NOTE | 2022-10-10 01:39 | NUR ---
The patient suddenly charged up to the nursing station in a threatening manner screaming and flipping off staff and making delusional statements. Demanding that he be discharged security called and the patient was placed in restraints and IM medications given.
[2022-10-10] MEDS ORDERED: Insulin ASPART (NovoLOG) pen SQ ONE (03:15)
--- NOTE | 2022-10-10 03:16 | NUR ---
The patient is sleeping. Restraints removed. BS is 256. Dr. Pedersen made aware of transfer to [facility] in the am but the facility is requesting blood sugar to be decreased. He gave insulin orders and am medications for transport.
[2022-10-10] MEDS ORDERED: insulin Lispro (HumaLOG) vial - multi-dose SQ ONE (03:20)
--- NOTE | 2022-10-10 05:20 | NUR ---
The patient appears to be sleeping
--- NOTE | 2022-10-10 07:45 | NUR ---
Received patient sleeping. Patient awakens and takes his medications. 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 Patient now up at nurses station. Attempted to redirect patient back to his room, and patient became beligerant stating that "I can do what I want". Security called and are making sure patient goes back to his room. Patient up to the restroom. BGM 246.
[2022-10-10] MEDS ORDERED: haloperidol 5mg tablet PO ONE (08:00)
[2022-10-10] MEDS ORDERED: EMPAGLIFLOZIN 10 MG TABLET PO SCH (08:00)
[2022-10-10] MEDS ORDERED: LORazepam 1 MG tablet PO ONE (08:00)
[2022-10-10] MEDS ORDERED: LIDOcaine 5% patch TP SCH (08:00)
[2022-10-10] MEDS ORDERED: diphenhydrAMINE 25mg capsule PO ONE (08:00)
[2022-10-10] MEDS ORDERED: MELOXICAM 7.5 MG TABLET PO SCH (08:00)
[2022-10-10] MEDS: gabapentin 400mg capsule PO SCH ×2 (08:41→13:38)
--- NOTE | 2022-10-10 10:43 | NUR ---
Patient sleeping supine in bed. Respirations are even and unlabored.
--- NOTE | 2022-10-10 11:20 | NUR ---
Patient gets up out of bed and states that we should not call him Teddy, but to call him chief or papa. Patient is disorganized and would not follow directions, security called to get him back to his bed. Patient gets back in bed and calms down.
--- NOTE | 2022-10-10 13:04 | NUR ---
Angelia Ramos [facility] called to get report on patient. They will call back if accepted. T: 98.0
--- NOTE | 2022-10-10 13:14 | NUR ---
[facility] called to inform RN that patient has been accepted at [facility] and they will be picking him up in 1-1.5 hours for transport.
[2022-10-10] MEDS ORDERED: LORazepam 1 MG tablet PO STA (13:30)
[2022-10-10] MEDS ORDERED: diphenhydrAMINE 25mg capsule PO STA (13:30)
[2022-10-10] MEDS ORDERED: haloperidol 5mg tablet PO STA (13:30)
--- NOTE | 2022-10-10 14:45 | NUR ---
Patient discharged from unit with security officers to walk him out to [facility] caged car. Ballast Regulator Operator has 5150, patient's belongings. D
--- NOTE | 2022-10-10 14:47 | NUR ---
Patient is being transferred to [facility].
[2022-10-10 14:49] VITALS: BP 129/70
== END 2022-10-10 14:53 ==
LOC: ER 06:35
DX: R45.851 Suicidal ideations (principal); Z20.822 Contact with and (suspected) exposure to COVID-19; F29 Unspecified psychosis not due to a substance or known physiological condition; Z79.899 Other long term (current) drug therapy
CPT/HCPCS: 36415; 80053; 80305; 80320; 81001; 82948; 84443; 85025; 87088; 87811; 96372; 99285; J1200; J1630; J1815; J2060; Q0163

== ENCOUNTER 2023-11-22 00:49 | Emergency (ER) | payer MEDICARE, MEDICAID ==
[~2023-11-22] VITALS: Ht 188 cm; Wt 110.0 kg
[~2023-11-22 00:49] MED LIST changes: -BUPR100T13 PO; -GABA-530 PO; +GABA-535 PO; +GLIP10TA11 PO; +LIDO700A47 TOP; +OLAN20TA34 PO; -PROP40TA72 PO; -ROSU20TA2 PO; -TEST60GE2; -TOPI25TA49 PO
[2023-11-22 00:57] VITALS: BP 123/103; PULSE 102; O2SAT 96
[2023-11-22] MEDS ORDERED: morphine 4 MG/ML inj SYRINge IV ONE (01:05)
[2023-11-22 01:20] VITALS: RESP 30
[2023-11-22] MEDS: fentaNYL/PF 50MCG/1 ML 2ML syringe IV ONE (01:20)
[2023-11-22] MEDS: propofol 10mg/ml 20ml vial IV ONE (02:03)
[2023-11-22] MEDS: HYDROcodone/acetaminophen 10/325mg tab PO ONE (02:14)
[2023-11-22 03:42] VITALS: TEMP 98.2
== END 2023-11-22 02:30 | disposition home or self-care (01) ==
LOC: ER 00:49
DX: S43.005A Unspecified dislocation of left shoulder joint, initial encounter (principal); Z79.899 Other long term (current) drug therapy
CPT/HCPCS: 96374; 99283; J3010; L3650; A4565

== ENCOUNTER 2024-03-09 12:09 | Emergency (ER) | payer MEDICARE, MEDICAID ==
[~2024-03-09] VITALS: Ht 185.4 cm; Wt 113.6 kg
[~2024-03-09 12:09] MED LIST changes: -OLAN20TA34 PO; +OLAN20TA81 PO
[2024-03-09] MEDS: haloperidol lactate 5mg/ml inj IM ONE (12:56)
[2024-03-09] MEDS: LORazepam 2 mg/ml vial IM ONE (12:56)
[2024-03-09] MEDS: diphenhydrAMINE 50 mg/ml inj IM ONE (12:56)
[2024-03-09 13:35] LABS: BASOPHILS % (AUTO) 0.3 % (0-1); EOSINOPHILS # (AUTO) 0.2 X10'3 (0-0.9); EOSINOPHILS % (AUTO) 1.2 % (0-6); HEMATOCRIT 41.1 % (42.0-52.0); LYMPHOCYTES % (AUTO) 20.9 % (21-51); MEAN CORPUSCULAR HGB CONC 31.7 g/dL (33.0-36.5); MEAN CORPUSCULAR VOLUME 81.9 FL (78-98); MEAN PLATELET VOLUME 8.3 FL (7.4-10.4); MONOCYTES % (AUTO) 6.7 % (2-12); NEUTROPHILS # (AUTO) 10.2 X10'3 (1.8-7.7); NEUTROPHILS % (AUTO) 70.9 % (42-75); PLATELET COUNT 330 X10'3 (140-440); RED BLOOD COUNT 5.02 X10'6 (4.70-6.10); WHITE BLOOD COUNT 14.3 X10'3 (4.5-11.0)
[2024-03-09 13:48] LABS: ALBUMIN 3.5 G/DL (3.4-5.0); ANION GAP 17 (8-16); BLOOD UREA NITROGEN 20 MG/DL (7-18); BUN/CREATININE RATIO 20.4 (10.0-20.0); CALCIUM 9.5 MG/DL (8.5-10.1); CHLORIDE 101 MMOL/L (99-107); CREATININE 0.98 MG/DL (0.60-1.10); ETHANOL < 10 MG/DL (<10); GLUCOSE 252 MG/DL (70-104); POTASSIUM 3.6 MMOL/L (3.5-5.1); SODIUM 137 MMOL/L (135-145); TOTAL CARBON DIOXIDE 19.1 MMOL/L (24-32); eCRCL 118 ML/MIN; eGFR 87 ML/MIN
[2024-03-09] MEDS ORDERED: cyclobenzaprine 10mg tablet PO PRN (21:05)
[2024-03-09] MEDS: OLANZapine **IM** 10 mg inj. IM ONE (21:20)
[2024-03-09 23:47] LABS: URINE AMPHETAMINE SCREEN NEGATIVE (Neg); URINE BARBITUATE SCREEN NEGATIVE (Neg); URINE BENZODIAZEPINES SCREEN NEGATIVE (Neg); URINE CANNABINOID SCREEN NEGATIVE (Neg); URINE COCAINE SCREEN NEGATIVE (Neg); URINE METHADONE SCREEN NEGATIVE (Neg); URINE OPIATE SCREEN NEGATIVE (Neg); URINE PHENCYCLIDINE SCREEN NEGATIVE (Neg)
[2024-03-10 04:55] VITALS: BP 116/82; PULSE 102; TEMP 98.2; O2SAT 0
[2024-03-10 07:50] VITALS: RESP 16
[2024-03-10] MEDS: gabapentin 400mg capsule PO SCH (09:11)
[2024-03-10] MEDS: EMPAGLIFLOZIN 10 MG TABLET PO SCH (09:11)
[2024-03-10] MEDS: ziprasidone IM 20mg inj **IM only IM ONE (10:19)
[2024-03-10] MEDS: glipizide 5mg tablet PO SCH (13:05)
[2024-03-10] MEDS ORDERED: olanzapine 10mg tablet PO SCH (21:00)
== END 2024-03-10 14:25 ==
LOC: ER 12:10
DX: F29 Unspecified psychosis not due to a substance or known physiological condition (principal); Z20.822 Contact with and (suspected) exposure to COVID-19; Z79.899 Other long term (current) drug therapy; Z79.2 Long term (current) use of antibiotics
CPT/HCPCS: 36415; 71045; 80048; 80305; 80320; 82948; 84145; 85025; 87811; 96372; 99285; J1200; J1630; J2060; J3486; J3490

== ENCOUNTER 2024-04-16 17:12 | Emergency (ER) | payer MEDICARE, MEDICAID ==
[~2024-04-16] VITALS: Ht 190.5 cm; Wt 140.9 kg
[2024-04-16 17:34] VITALS: BP 156/97; PULSE 148; RESP 24; TEMP 99; O2SAT 100
== END 2024-04-16 17:40 ==
LOC: ER 17:13
DX: S50.811A Abrasion of right forearm, initial encounter (principal); Z79.899 Other long term (current) drug therapy; W22.8XXA Striking against or struck by other objects, initial encounter; Y93.89 Activity, other specified; Y92.89 Other specified places as the place of occurrence of the external cause; Y99.8 Other external cause status
CPT/HCPCS: 99283

== ENCOUNTER 2024-04-21 14:27 | Emergency (ER) | payer MEDICARE, MEDICAID ==
[~2024-04-21] VITALS: Ht 182.9 cm; Wt 129.8 kg
[2024-04-21] MEDS: haloperidol lactate 5mg/ml inj IM ONE (15:22)
[2024-04-21] MEDS: LORazepam 2 mg/ml vial IM ONE (15:22)
[2024-04-21] MEDS: diphenhydrAMINE 50 mg/ml inj IM ONE (15:22)
[2024-04-21 16:27] LABS: BASOPHILS % (AUTO) 0.2 % (0-1); EOSINOPHILS # (AUTO) 0.2 X10'3 (0-0.9); EOSINOPHILS % (AUTO) 1.5 % (0-6); HEMATOCRIT 37.8 % (42.0-52.0); LYMPHOCYTES # (AUTO) 1.7 X10'3 (1.1-4.8); LYMPHOCYTES % (AUTO) 14.7 % (21-51); MEAN CORPUSCULAR HEMOGLOBIN 26.4 PG (27.0-31.0); MEAN CORPUSCULAR HGB CONC 31.8 g/dL (33.0-36.5); MEAN CORPUSCULAR VOLUME 82.8 FL (78-98); MEAN PLATELET VOLUME 8.6 FL (7.4-10.4); MONOCYTES # (AUTO) 0.6 X10'3 (0-0.9); MONOCYTES % (AUTO) 4.9 % (2-12); NEUTROPHILS # (AUTO) 8.9 X10'3 (1.8-7.7); NEUTROPHILS % (AUTO) 78.7 % (42-75); PLATELET COUNT 268 X10'3 (140-440); RED BLOOD COUNT 4.57 X10'6 (4.70-6.10); RED CELL DISTRIBUTION WIDTH 15.3 % (11.5-14.5); WHITE BLOOD COUNT 11.3 X10'3 (4.5-11.0)
[2024-04-21 16:44] LABS: ALBUMIN 3.1 G/DL (3.4-5.0); ANION GAP 7 (8-16); BLOOD UREA NITROGEN 21 MG/DL (7-18); BUN/CREATININE RATIO 22.8 (10.0-20.0); CALCIUM 8.9 MG/DL (8.5-10.1); CHLORIDE 98 MMOL/L (99-107); CREATININE 0.92 MG/DL (0.60-1.10); ETHANOL < 10 MG/DL (<10); POTASSIUM 4.5 MMOL/L (3.5-5.1); SODIUM 133 MMOL/L (135-145); TOTAL CARBON DIOXIDE 28.5 MMOL/L (24-32); eCRCL 122 ML/MIN; eGFR > 90 ML/MIN
[2024-04-21 16:49] LABS: GLUCOSE 435 MG/DL (70-104)
[2024-04-21] MEDS: normal saline 1000ML IV soln IVB ONE (17:42)
[2024-04-21 18:17] LABS: URINE AMPHETAMINE SCREEN NEGATIVE (Neg); URINE BARBITUATE SCREEN NEGATIVE (Neg); URINE BENZODIAZEPINES SCREEN NEGATIVE (Neg); URINE CANNABINOID SCREEN NEGATIVE (Neg); URINE COCAINE SCREEN NEGATIVE (Neg); URINE METHADONE SCREEN NEGATIVE (Neg); URINE OPIATE SCREEN NEGATIVE (Neg); URINE PHENCYCLIDINE SCREEN NEGATIVE (Neg)
[2024-04-21] MEDS ORDERED: DICL100G59 TOP (19:55)
[2024-04-21] MEDS ORDERED: QUET100T34 PO (19:55)
[2024-04-21] MEDS ORDERED: LAMO200T10 PO (19:55)
[2024-04-21] MEDS: NPH, human insulin isophane inj. SQ SCH (20:00)
[2024-04-21] MEDS ORDERED: TEST200V33 IM (20:05)
[2024-04-21] MEDS ORDERED: DICLOFENAC SODIUM 1% gel 1 APPLIC APPLIC TP PRN (23:55)
[2024-04-21] MEDS ORDERED: cyclobenzaprine 10mg tablet PO PRN (23:55)
[2024-04-21] MEDS: TESTOSTERONE CYPIONATE 200 MG/ML VIAL IM SCH (23:55)
[2024-04-22] MEDS: haloperidol lactate 5mg/ml inj ONE (05:51)
[2024-04-22] MEDS: diphenhydrAMINE 50 mg/ml inj IM ONE (05:52)
[2024-04-22] MEDS: haloperidol lactate 5mg/ml inj IM ONE (05:52)
[2024-04-22] MEDS: LORazepam 2 mg/ml vial IM ONE (05:52)
[2024-04-22] MEDS: diphenhydrAMINE 50 mg/ml inj ONE (05:53)
[2024-04-22] MEDS: MELOXICAM 7.5 MG TABLET PO SCH (08:00)
[2024-04-22] MEDS: LIDOcaine 5% patch TP SCH (08:00)
[2024-04-22] MEDS: insulin regular, human 10 units/0.1 ml syringe SQ ONE (08:18)
[2024-04-22] MEDS: gabapentin 400mg capsule PO SCH (09:01)
[2024-04-22] MEDS: quetiapine 100mg tablet PO SCH (09:01)
[2024-04-22] MEDS: EMPAGLIFLOZIN 10 MG TABLET PO SCH (09:01)
[2024-04-22] MEDS: glipizide 5mg tablet PO SCH (09:02)
[2024-04-22] MEDS: lamoTRIgine 100mg tablet PO SCH (09:02)
[2024-04-22 17:08] VITALS: BP 97/68; PULSE 87; RESP 16; TEMP 97.9; O2SAT 99
[2024-04-22] MEDS ORDERED: olanzapine 10mg tablet PO SCH (21:00)
== END 2024-04-22 17:12 ==
LOC: ER 14:27
DX: F31.89 Other bipolar disorder (principal); F19.10 Other psychoactive substance abuse, uncomplicated; Z79.899 Other long term (current) drug therapy; Z79.84 Long term (current) use of oral hypoglycemic drugs; Z20.822 Contact with and (suspected) exposure to COVID-19
CPT/HCPCS: 36415; 80048; 80305; 80320; 82948; 85025; 87811; 96360; 96372; 99285; J1200; J1630; J1815; J2060; J7030; 96361